=== PATIENT | female | born 1950 | race African-American/Black ===

== ENCOUNTER 2017-11-13 08:46 | Outpatient (CLI) | payer OTHER ==
--- NOTE | 2017-11-13 10:10 | RAD ---
PA AND LATERAL OF THE CHEST: INDICATIONS: Chest pain. COMPARISON: None. FINDINGS: There is slight elevation of the right hemidiaphragm. No focal consolidation is evident. Heart size is within normal limits. No pleural effusion is demonstrated. There are DISH like changes involvin g the mid thoracic spine. IMPRESSION: No acute cardiopulmonary abnormality. POS: [facility]
== END 2017-11-13 08:47 | disposition home or self-care (01) ==
LOC: SCSRAD 08:46
PROVIDERS: ATTEND Family Medicine
DX: R05 Cough (principal)
CPT/HCPCS: 71046

== ENCOUNTER 2018-11-09 06:51 | Outpatient (CLI) | payer MEDICARE, OTHER ==
[2018-11-09 10:40] LABS: #Basophils 0.1 thou/uL (0.0-0.2); #Eosinphils 0.1 thou/uL (0.0-0.7); #Lymphocytes 2.4 thou/uL (1.20-3.40); #Monocytes 0.5 thou/uL (0.11-0.59); #Neutrophils 4.3 thou/uL (1.40-6.50); %Basophils 1.5 % (0.0-1.0); %Eosinophils 1.1 % (0.0-10.0); %Lymphocytes 32.3 % (21.0-51.0); %Monocytes 6.9 % (0.0-10.0); %Neutrophils 58.3 % (42.0-75.0); Hemoglobin 12.6 g/dL (12.0-16.0); Mean Corpuscular HGB CONC 30.9 g/dL (32.0-36.0); Mean Corpuscular Hemoglobin 29.1 pg (27.0-31.0); Mean Corpuscular Volume 94.2 fL (78.0-98.0); Mean Platelet Volume 9.4 fL (7.4-10.4); Platelet Count 243 thou/uL (130-400); RBC Distribution Width 14.5 % (11.5-14.5); Red Blood Cell (RBC) Count 4.34 mill/uL (4.20-5.40); White Blood Cell (WBC) Count 7.3 thou/uL (4.8-10.8)
[2018-11-09 10:52] LABS: ALT (SGPT) 11 U/L (8-55); AST (SGOT) 13 U/L (5-34); Albumin 3.8 g/dL (3.4-4.8); Alkaline Phosphatase 50 U/L (40-150); Anion Gap 17 mmol/L (10-20); BUN (Urea Nitrogen) 15 mg/dL (9.8-20.1); Bilirubin, Total 0.8 mg/dL (0.2-1.2); Calc. Creatinine Clearance 0 mL/min (70-130); Calcium 10.1 mg/dL (7.8-10.44); Carbon Dioxide 29 mmol/L (23-31); Chloride 103 mmol/L (98-107); Estimated GFR-MDRD 70; Globulin 3.3 g/dL (2.4-3.5); Glucose 172 mg/dL (80-115); Potassium 4.3 mmol/L (3.5-5.1); Protein, Total 7.1 g/dL (6.0-8.3); Sodium 145 mmol/L (136-145)
== END 2018-11-09 06:52 | disposition home or self-care (01) ==
LOC: LABBT 06:51
PROVIDERS: ATTEND Internal Medicine Cardiovascular Disease
DX: Z01.812 Encounter for preprocedural laboratory examination (principal); I42.9 Cardiomyopathy, unspecified
CPT/HCPCS: 80053; 85025

== ENCOUNTER 2018-11-15 05:52 | Day surgery (SDC) | payer MEDICARE, OTHER ==
[2018-11-09 09:44] VITALS: BMI 40.6
[2018-11-15] MEDS ORDERED: Heparin 10,000 UNITS/1 ML VIAL ONE (07:14)
[2018-11-15] MEDS ORDERED: Verapamil 5 MG/2 ML VIAL ONE (07:14)
[2018-11-15] MEDS ORDERED: Nitroglycerin 100MG/250ML BOT 250 ML ONE (07:14)
[2018-11-15] MEDS ORDERED: Iopamidol 370 76% 100 ML VIAL ONE (09:20)
== END 2018-11-15 10:15 | disposition home or self-care (01) ==
LOC: CCL 05:52
PROVIDERS: ATTEND Internal Medicine Cardiovascular Disease
PROC: 4A023N7 Measurement of Cardiac Sampling and Pressure, Left Heart, Percutaneous Approach (ICD-10-PCS; principal; 2018-11-15)
PROC: B2111ZZ Fluoroscopy of Multiple Coronary Arteries using Low Osmolar Contrast (ICD-10-PCS; 2018-11-15)
DX: I42.9 Cardiomyopathy, unspecified (principal); I11.0 Hypertensive heart disease with heart failure; I50.9 Heart failure, unspecified; I44.7 Left bundle-branch block, unspecified; E11.9 Type 2 diabetes mellitus without complications; E78.5 Hyperlipidemia, unspecified; Z79.82 Long term (current) use of aspirin; Z79.84 Long term (current) use of oral hypoglycemic drugs; Z79.899 Other long term (current) drug therapy; Z88.2 Allergy status to sulfonamides; Z88.8 Allergy status to other drugs, medicaments and biological substances
CPT/HCPCS: 93458; C1769; J1644; Q9967

== ENCOUNTER 2020-07-09 06:24 | Outpatient (CLI) | payer MEDICARE, OTHER ==
--- NOTE | 2020-07-09 11:51 | RAD ---
XR Chest Pa Lat STANDARD HISTORY: Preoperative evaluation COMPARISON: 06/08/2019 FINDINGS: The heart size is normal. Left-sided AICD remains in place. The lungs are well expanded wit hout focal areas of consolidation, pneumothorax or pleural effusions. There are degenerative changes in the spine. IMPRESSION: No radiographic evidence of acute cardiopulmonary process.
[2020-07-09 16:14] LABS: #Basophils 0.1 thou/uL (0.0-0.2); #Eosinphils 0.1 thou/uL (0.0-0.7); #Lymphocytes 1.8 thou/uL (1.20-3.40); #Monocytes 0.5 thou/uL (0.11-0.59); #Neutrophils 3.9 thou/uL (1.40-6.50); %Eosinophils 1.6 % (0.0-10.0); %Lymphocytes 28.9 % (21.0-51.0); %Monocytes 7.6 % (0.0-10.0); Hemoglobin 12.9 g/dL (12.0-16.0); Mean Corpuscular HGB CONC 31.1 g/dL (32.0-36.0); Mean Corpuscular Hemoglobin 30.9 pg (27.0-31.0); Mean Corpuscular Volume 99.3 fL (78.0-98.0); Mean Platelet Volume 9.5 fL (7.4-10.4); Platelet Count 216 thou/uL (130-400); RBC Distribution Width 13.8 % (11.5-14.5); Red Blood Cell (RBC) Count 4.16 mill/uL (4.20-5.40); White Blood Cell (WBC) Count 6.4 thou/uL (4.8-10.8)
[2020-07-09 16:47] LABS: Anion Gap 18 mmol/L (10-20); BUN (Urea Nitrogen) 19 mg/dL (9.8-20.1); Calc. Creatinine Clearance 0 mL/min (70-130); Calcium 9.2 mg/dL (7.8-10.44); Carbon Dioxide 27 mmol/L (23-31); Chloride 103 mmol/L (98-107); Estimated GFR-MDRD 84; Glucose 109 mg/dL (80-115); Potassium 4.7 mmol/L (3.5-5.1); Sodium 143 mmol/L (136-145)
[2020-07-10 13:23] LABS: SARS-CoV-2 MS2 Positive; SARS-CoV-2 N Gene Negative; SARS-CoV-2 S Gene Negative; SARS-CoV-2 by NAA Not Detected (NotDetected); SARS-CoV-2 orf1ab Negative
== END 2020-07-09 06:25 | disposition home or self-care (01) ==
LOC: LABBT 06:24 → SCSRAD 06:25
PROVIDERS: ATTEND Specialist
DX: Z01.818 Encounter for other preprocedural examination (principal); Z20.828 Contact with and (suspected) exposure to other viral communicable diseases; C50.912 Malignant neoplasm of unspecified site of left female breast; R59.0 Localized enlarged lymph nodes
CPT/HCPCS: 71046; 80048; 85025; 87635; U0003

== ENCOUNTER 2020-07-12 06:44 | Observation (INO) | payer MEDICARE ==
[2020-07-12] MEDS ORDERED: Acetaminophen 500 MG TAB ONE (08:26)
--- NOTE | 2020-07-12 08:41 | NM ---
Exam: Nuclear medicine lymphoscintigraphy HISTORY: Left breast cancer COMPARISON: None TECHNIQUE: Patient was administered a total of 0.416 focus of technetium 99m filtered sulfur colloid subcutaneous the 12:00, 3:00, 6:00 and 9:00 position. FINDINGS: There appears to be a sentinel lymph node in the left adnexa IMPRESSION: Left axillary sentinel lymph node.
[2020-07-12] MEDS ORDERED: Ketorolac Tromethamine 30 MG/ML VIAL ONE ×2 (09:04→09:50)
[2020-07-12] MEDS ORDERED: PROPOFOL 200 MG/20 ML VIAL ONE (09:50)
[2020-07-12] MEDS ORDERED: Metoclopramide HCl 10 MG/2 ML VIAL ONE (09:50)
[2020-07-12] MEDS ORDERED: Dexamethasone 20 MG/5 ML VIAL ONE (09:50)
[2020-07-12] MEDS ORDERED: Ondansetron PF 4 MG/2 ML Vial ONE (09:50)
[2020-07-12] MEDS ORDERED: Lidocaine 1% PF 5 ML VIAL ONE (09:50)
[2020-07-12] MEDS ORDERED: Succinylcholine Chloride 20 MG/ML 10 ml SYRINGE FS ONE ×3 (09:50→17:52)
[2020-07-12] MEDS ORDERED: Fentanyl 100 MCG/2 ML VIAL ONE ×3 (11:33→18:28)
[2020-07-12] MEDS ORDERED: Lidocaine 1% w/Epinephrine 1:100K 20 ML VIAL ONE (14:19)
[2020-07-12] MEDS ORDERED: Bupivacaine 0.25% HCL 30 ML VIAL ONE (14:19)
[2020-07-12] MEDS ORDERED: Methylene Blue 50 MG/10 ML AMPUL ONE (14:48)
[2020-07-12] MEDS ORDERED: hydrALAZINE 20 MG/ML VIAL SLOW IVP PRN (19:32)
[2020-07-12] MEDS ORDERED: Insulin Regular 300 UNITS/3 ML VIAL SC PRN (19:32)
[2020-07-12] MEDS ORDERED: Dextrose 5% in Water 1,000 ML IV PRN (19:32)
[2020-07-12] MEDS ORDERED: Ondansetron PF 4 MG/2 ML Vial IVP PRN (19:32)
[2020-07-12] MEDS ORDERED: Promethazine HCl 25 MG/ML VIAL IM PRN (19:32)
[2020-07-12] MEDS ORDERED: Dextrose 50% Abboject 50 ML SYRINGE SLOW IVP PRN (19:32)
[2020-07-12] MEDS: Carvedilol 25 MG TAB PO SCH (21:00)
[2020-07-12] MEDS: Famotidine 20 MG TAB PO SCH (21:00)
[2020-07-12] MEDS: Lactated Ringer's 1,000 ML IV SCH (21:49)
[2020-07-12 22:59] VITALS: BMI 42.5
[2020-07-13] MEDS: HYDROcodone/Acetaminophen 7.5/325 mg Tablet PO PRN ×2 (03:50→12:17)
[2020-07-13 05:06] LABS: #Lymphocytes 1.2 thou/uL (1.20-3.40); #Monocytes 0.5 thou/uL (0.11-0.59); %Basophils 0.1 % (0.0-1.0); %Lymphocytes 8.8 % (21.0-51.0); %Monocytes 3.6 % (0.0-10.0); %Neutrophils 87.4 % (42.0-75.0); Hemoglobin 12.6 g/dL (12.0-16.0); Mean Corpuscular HGB CONC 31.9 g/dL (32.0-36.0); Mean Corpuscular Hemoglobin 31.3 pg (27.0-31.0); Mean Corpuscular Volume 98.3 fL (78.0-98.0); Mean Platelet Volume 9.5 fL (7.4-10.4); Platelet Count 213 thou/uL (130-400); RBC Distribution Width 13.6 % (11.5-14.5); Red Blood Cell (RBC) Count 4.04 mill/uL (4.20-5.40); White Blood Cell (WBC) Count 13.8 thou/uL (4.8-10.8)
[2020-07-13 05:30] LABS: Anion Gap 13 mmol/L (10-20); BUN (Urea Nitrogen) 20 mg/dL (9.8-20.1); Calc. Creatinine Clearance 106 mL/min (70-130); Calcium 8.9 mg/dL (7.8-10.44); Carbon Dioxide 32 mmol/L (23-31); Chloride 101 mmol/L (98-107); Estimated GFR-MDRD 69; Glucose 184 mg/dL (80-115); Potassium 4.7 mmol/L (3.5-5.1); Sodium 141 mmol/L (136-145)
[2020-07-13] MEDS ORDERED: metFORMIN 500 MG TAB PO SCH (08:00)
[2020-07-13] MEDS ORDERED: Aspirin Chewable 81 MG TAB PO SCH (09:00)
[2020-07-13] MEDS ORDERED: Furosemide 20 MG TAB PO SCH (09:00)
[2020-07-13] MEDS: Carvedilol 25 MG TAB PO SCH (09:11)
[2020-07-13] MEDS: Famotidine 20 MG TAB PO SCH (09:11)
[2020-07-13] MEDS: Lactated Ringer's 1,000 ML IV SCH (09:32)
[2020-07-13 12:57] VITALS: BP 132/68; TEMP 97.3
--- NOTE | 2020-07-16 13:43 | OP ---
DATE OF PROCEDURE: 07/12/2020 PREOPERATIVE DIAGNOSIS: Left breast cancer. POSTOPERATIVE DIAGNOSIS: Left breast cancer with axillary lymph node metastasis. PROCEDURES PERFORMED: 1. Left breast ultrasound-guided needle localization. 2. Needle localized left lumpectomy. 3. Left axillary sentinel lymph node biopsy, conversion to a left axillary line, axillary lymph node dissection. ANESTHESIA: General endotracheal. INDICATIONS: The patient is a 69-year-old black female. She presented with what appeared to be 2 separate foci of cancer in the left breast just above the nipple-areolar complex. One of these was at the 11 o'clock Radian and other about the 1 o'clock radian. I was decided to resect these in continuity. DESCRIPTION OF OPERATION: Informed consent was obtained. The patient was taken to the operating room where general endotracheal anesthesia obtained with the patient in supine position. The left breast was infiltrated with 3 mL of Lymphazurin in the periareolar subdermal tissue and massaged for 5 minutes. Attention was turned first to the left axilla. Local anesthetic was infiltrated. Transverse axillary incision was created. Dissection was carried through skin and subcutaneous tissue. Neoprobe was utilized to guide the dissection. I identified 3 separate axillary lymph nodes, each of which were radioactive. There was minimal blue staining of the lymph nodes. These lymph nodes had a worrisome appearance. I was not surprised and I was told by Pathology the each of the three lymph nodes had metastatic tumor within them. While awaiting the results of the Touch Prep, I turned my attention to the breast. Ultrasound was utilized to identify the areas of the cancer within the breast and these were marked on the skin in a grid fashion. I passed 2 separate localizing wires into the two lesions, the lateral lesion I passed the wire in a lateral to medial fashion. In the medial lesion, I passed the wire in a medial to lateral fashion. Due to the proximity of the lateral lesion to the skin, I made an elliptical incision over this segment of the of the resection. Dissection was carried through skin and subcutaneous tissue. Ultrasound was utilized during the course of the procedure to try to continue to identify the malignancy. I obtained a wide core of tissue around both wires, removing the specimen in continuity. It was tagged for orientation and submitted for pathology. Meticulous hemostasis was obtained. The wound was closed in layers with 3-0 and 4-0 Monocryl. Dermabond was placed externally. Attention was then turned to the left axilla. The incision was extended somewhat both anteriorly and posterior. Dissection was carried out so as to raised flaps superiorly and inferiorly. The inferior flap was then carried down to the chest wall. The lateral aspect of the pectoralis was identified. Dissection was carried superiorly to identify this axillary vein. I then carefully identified both the long thoracic and thoracodorsal nerves and preserved these throughout. All fatty and lymphatic tissue were swept out of the axilla in a superior to inferior fashion. All lymphatics were clipped as they were encountered. The specimen was passed off the field. Meticulous hemostasis was obtained. A #19 round fluted drain was placed within the wound and brought out inferiorly and secured with 3-0 nylon suture. The wound was closed in layers with 3-0 and 4-0 Monocryl and Dermabond was placed externally. There were no complications. The patient tolerated the procedure well and was taken to recovery in stable condition. Job ID: [id number]
== END 2020-07-13 13:05 | disposition home or self-care (01) ==
LOC: SDC 06:44 → SURG A 19:29
PROVIDERS: ADMIT Specialist; ATTEND Specialist
PROC: 0HBU0ZZ Excision of Left Breast, Open Approach (ICD-10-PCS; principal; 2020-07-12)
PROC: 07B63ZX Excision of Left Axillary Lymphatic, Percutaneous Approach, Diagnostic (ICD-10-PCS; 2020-07-12)
DX: C50.412 Malignant neoplasm of upper-outer quadrant of left female breast (principal); C77.3 Secondary and unspecified malignant neoplasm of axilla and upper limb lymph nodes; E11.9 Type 2 diabetes mellitus without complications; I10 Essential (primary) hypertension; M19.90 Unspecified osteoarthritis, unspecified site; J30.2 Other seasonal allergic rhinitis; Z17.0 Estrogen receptor positive status [ER+]; Z79.84 Long term (current) use of oral hypoglycemic drugs; Z79.899 Other long term (current) drug therapy; Z88.2 Allergy status to sulfonamides; Z88.8 Allergy status to other drugs, medicaments and biological substances
CPT/HCPCS: 19301; 38525; 76098; 78195; 80048; 82962 ×2; 85025; 94660; 97139; A9541; Q9968; 36415; 36416; 88307; 88333; 88334; 96360; 96361; G0378; J0690; J1100; J1815; J1885; J2405; J2704; J2765; J3010; S0020

== ENCOUNTER 2020-07-23 08:04 | Outpatient (CLI) | payer MEDICARE, OTHER ==
[2020-07-23 16:27] LABS: #Basophils 0.1 thou/uL (0.0-0.2); #Eosinphils 0.2 thou/uL (0.0-0.7); #Lymphocytes 2.5 thou/uL (1.20-3.40); #Monocytes 0.6 thou/uL (0.11-0.59); %Eosinophils 2.6 % (0.0-10.0); %Lymphocytes 26.8 % (21.0-51.0); %Monocytes 6.3 % (0.0-10.0); %Neutrophils 63.4 % (42.0-75.0); Hemoglobin 12.8 g/dL (12.0-16.0); Mean Corpuscular HGB CONC 31.9 g/dL (32.0-36.0); Mean Corpuscular Hemoglobin 31.2 pg (27.0-31.0); Mean Corpuscular Volume 97.9 fL (78.0-98.0); Mean Platelet Volume 9.4 fL (7.4-10.4); Platelet Count 260 thou/uL (130-400); RBC Distribution Width 13.9 % (11.5-14.5); Red Blood Cell (RBC) Count 4.11 mill/uL (4.20-5.40); White Blood Cell (WBC) Count 9.5 thou/uL (4.8-10.8)
[2020-07-23 16:55] LABS: Anion Gap 14 mmol/L (10-20); BUN (Urea Nitrogen) 18 mg/dL (9.8-20.1); Calc. Creatinine Clearance 0 mL/min (70-130); Calcium 9.4 mg/dL (7.8-10.44); Carbon Dioxide 32 mmol/L (23-31); Chloride 100 mmol/L (98-107); Estimated GFR-MDRD 69; Glucose 195 mg/dL (80-115); Potassium 4.4 mmol/L (3.5-5.1); Sodium 142 mmol/L (136-145)
[2020-07-24 16:21] LABS: SARS-CoV-2 MS2 Positive; SARS-CoV-2 N Gene Negative; SARS-CoV-2 S Gene Negative; SARS-CoV-2 by NAA Not Detected (NotDetected); SARS-CoV-2 orf1ab Negative
== END 2020-07-23 08:05 | disposition home or self-care (01) ==
LOC: LABBT 08:04
PROVIDERS: ATTEND Specialist
DX: Z01.812 Encounter for preprocedural laboratory examination (principal); C50.912 Malignant neoplasm of unspecified site of left female breast; Z20.828 Contact with and (suspected) exposure to other viral communicable diseases
CPT/HCPCS: 80048; 85025; U0003; 87635

== ENCOUNTER 2020-07-26 05:35 | Observation (INO) | payer MEDICARE ==
[2020-07-24 09:44] VITALS: BMI 42.0
[2020-07-26] MEDS ORDERED: Ketorolac Tromethamine 30 MG/ML VIAL ONE ×2 (06:31→10:11)
[2020-07-26] MEDS ORDERED: Acetaminophen 500 MG TAB ONE (06:31)
[2020-07-26] MEDS ORDERED: Bupivacaine/Epinephrine 0.25% 30 ML VIAL ONE (06:36)
[2020-07-26] MEDS ORDERED: Lidocaine 2% PF 5 ML VIAL ONE (06:36)
[2020-07-26] MEDS ORDERED: Lidocaine 1% (PF) 30 ML VIAL ONE (06:41)
[2020-07-26] MEDS ORDERED: HYDROmorphone 0.5 MG/0.5 ML SYRINGE ONE (07:17)
[2020-07-26] MEDS ORDERED: Fentanyl 100 MCG/2 ML VIAL ONE (07:17)
[2020-07-26] MEDS ORDERED: HYDROmorphone 2 MG/ML VIAL SLOW IVP PRN (08:51)
[2020-07-26] MEDS ORDERED: Promethazine HCl 25 MG/ML VIAL SLOW IVP PRN (08:51)
[2020-07-26] MEDS ORDERED: Ondansetron HCl/PF 4 MG/2 ML Vial IVP PRN (08:51)
[2020-07-26] MEDS ORDERED: SUGAMMADEX SODIUM 500 MG/5 ML VIAL ONE (08:59)
[2020-07-26] MEDS ORDERED: EPHEDRINE 25 MG/5 ML SYRINGE ONE (10:11)
[2020-07-26] MEDS ORDERED: PROPOFOL 200 MG/20 ML VIAL ONE (10:11)
[2020-07-26] MEDS ORDERED: Lidocaine 1% PF 5 ML VIAL ONE (10:11)
[2020-07-26] MEDS ORDERED: Dexamethasone 20 MG/5 ML VIAL ONE (10:11)
[2020-07-26] MEDS ORDERED: PHENYLEPHRINE-NS 100 MCG/ML 10 ML SYRINGE ONE (10:11)
[2020-07-26] MEDS ORDERED: Glycopyrrolate 0.2 MG/ML 5 ML SYRINGE ONE (10:11)
[2020-07-26] MEDS ORDERED: Rocuronium Bromide 10 MG/ML (10ML VIAL) ONE (10:11)
[2020-07-26] MEDS ORDERED: Ondansetron PF 4 MG/2 ML Vial ONE (10:11)
--- NOTE | 2020-07-26 10:27 | RAD ---
CHEST 1 VIEW: HISTORY: Status post MediPort placement. FINDINGS: Left ICD. Right central line and injection port. Small right apical pneumothorax with some minimal subcutaneous emphysema in the right neck. The left chest is unremarkable. Heart size is normal. IMPRESSION: Small right apical pneumothorax with minimal air in the right neck soft tissues. Findings were discussed with nurse Bradley in the recovery room at 10:17 a.m. who indicated that he w ould contact Dr. Lyles in this regard who is in surgery at the present time. POS: [facility]
[2020-07-26] MEDS ORDERED: HYDROcodone/Acetaminophen 5/325 mg Tablet ONE (12:25)
[2020-07-26] MEDS ORDERED: Ondansetron PF 4 MG/2 ML Vial IVP PRN (13:17)
[2020-07-26] MEDS ORDERED: Promethazine HCl 25 MG/ML VIAL IM PRN (13:17)
[2020-07-26] MEDS ORDERED: Morphine 2 MG/ML VIAL SLOW IVP PRN (13:17)
[2020-07-26] MEDS ORDERED: hydrALAZINE 20 MG/ML VIAL SLOW IVP PRN (13:17)
[2020-07-26] MEDS ORDERED: Dextrose 5% in Water 1,000 ML IV PRN (13:17)
[2020-07-26] MEDS ORDERED: Dextrose 50% Abboject 50 ML SYRINGE SLOW IVP PRN (13:17)
--- NOTE | 2020-07-26 13:54 | OP ---
DATE OF PROCEDURE: 07/26/2020 PREOPERATIVE DIAGNOSIS: Left breast cancer with positive margins following recent lumpectomy. PROCEDURE PERFORMED: Placement of right subclavian standard-sized power compatible MediPort, re-excision of left breast lumpectomy with conversion to a central lumpectomy. TOOL LIAISON: Keiko Diaz, medical student. ANESTHESIA: General endotracheal. INDICATIONS: The patient is a 69-year-old obese black female. She has recently undergone left breast cancer surgery. Her lumpectomy margins were positive with an attempted nipple preservation. She also had an axillary node dissection as she had multiple positive axillary lymph nodes. She is returned to the operating room at this time for re-excision of her lumpectomy. I believe the size of her breasts allows for a more robust excision without producing an unsatisfactory result. We will also place a right subclavian MediPort for chemotherapy administration. DESCRIPTION OF OPERATION: Informed consent was obtained. Patient was taken to the operating room, where general endotracheal anesthesia obtained with patient in supine position. Attention was turned first to her right chest. Her bilateral chest and breasts were prepped with ChloraPrep and draped in sterile fashion. Local anesthetic was infiltrated and a large gauge needle was passed under the clavicle into the subclavian vein. Guidewire was passed through the needle and fluoroscopically confirmed to enter the superior vena cava. Additional local anesthetic was infiltrated. Transverse incision was created based on needle insertion site and subcutaneous pocket was dissected. Introducer dilator was passed over the guidewire under fluoroscopic guidance. Catheter was passed through the introducer, which was removed in the usual peel-apart fashion. The catheter tip was positioned at the atriocaval junction and the catheter was trimmed to appropriate length. It was secured to the locking hub of the MediPort. The port was secured to pectoral fascia with 2 interrupted sutures of 3-0 Prolene. The wound was closed in layers with 3-0 and 4-0 Monocryl and Dermabond was placed externally. Attention was turned to the left breast. An elliptical incision was fashioned to include the entire superior part of the nipple-areolar complex. I carried the incision through the inferior areola to avoid further skin excision. Dissection was carried through the skin and subcutaneous tissue. Good margin of tissue was maintained around the prior lumpectomy site. Attention was paid to the previous positive margins in order to try to get negative margins. The specimen was removed intact and tagged for orientation and passed off the field. The wound was inspected and there was found to be potentially concerning tissue laterally. This may have just been glandular tissue, but I decided to excise the lateral margin. This was removed and tagged for orientation. Meticulous hemostasis was obtained. The wound was closed in layers using 3-0 Vicryl to approximate the deep central area to hopefully produce some projection. Remainder of the wound closed in layers with 3-0 and 4-0 Monocryl. Dermabond was placed over the incision site. There were no complications. Blood loss was negligible. The patient tolerated the procedure well. Postop chest x-ray recognized that there was a tiny right apical pneumothorax after the MediPort was placed. This was not anticipated based on intraoperative findings or occurrences. She, however, will be admitted for observation to ensure this is stable. Job ID: [id number]
[2020-07-26] MEDS: Insulin Regular 300 UNITS/3 ML VIAL SC PRN ×2 (16:31→21:35)
[2020-07-26] MEDS: Lactated Ringer's 1,000 ML IV SCH (16:32)
[2020-07-26] MEDS: Famotidine 20 MG TAB PO SCH (20:34)
[2020-07-26] MEDS: HYDROcodone/Acetaminophen 7.5/325 mg Tablet PO PRN (20:34)
[2020-07-27 05:36] LABS: #Lymphocytes 1.5 thou/uL (1.20-3.40); #Monocytes 1.3 thou/uL (0.11-0.59); #Neutrophils 13.5 thou/uL (1.40-6.50); %Basophils 0.2 % (0.0-1.0); %Eosinophils 0.2 % (0.0-10.0); %Lymphocytes 9.2 % (21.0-51.0); %Monocytes 7.7 % (0.0-10.0); %Neutrophils 82.6 % (42.0-75.0); Hemoglobin 12.1 g/dL (12.0-16.0); Mean Corpuscular HGB CONC 32.1 g/dL (32.0-36.0); Mean Corpuscular Hemoglobin 31.3 pg (27.0-31.0); Mean Corpuscular Volume 97.7 fL (78.0-98.0); Mean Platelet Volume 8.9 fL (7.4-10.4); Platelet Count 225 thou/uL (130-400); RBC Distribution Width 13.5 % (11.5-14.5); Red Blood Cell (RBC) Count 3.86 mill/uL (4.20-5.40); White Blood Cell (WBC) Count 16.4 thou/uL (4.8-10.8)
[2020-07-27] MEDS: Insulin Regular 300 UNITS/3 ML VIAL SC PRN (06:29)
--- NOTE | 2020-07-27 08:57 | PDOC.GSPN ---
Surgery Progress Note: Subj - Subjective Narrative: Ms. Ssuan Arreola is a 69 year old female POD 1 re-excision of left lumpectomy for negative margins and mediport placement. She was kept in the hospital overnight for observation of a small right pneumothorax that was noted in the post-op CXR for the mediport placement. Overnight her vitals stayed stable with her O2 saturation never dropping below 92%. She remains on 2L of oxygen via nasal canula and had a repeat CXR this morning. Her BP spiked this morning to 175/71, but the nurse reported that Ms. Arreola was in significant pain (8/10) when that BP was measured. She had just finished ambulating when I visited her this morning and the walking program will come walk with her again in a few hours. She was feeling okay overall and has 4/10 pain around her lumpectomy incision site but is manageable with pain medications. She has been eating well without any nausea or vomiting and has been able to urinate. She has not yet had a bowel movement or passed flatus. She denies shortness of breath, difficulty breathing, chest pain, constipation, dizziness, and headaches. Surgery Progress Note: Obj - Vital signs Vital signs: Vital Signs - Most Recent Temp Pulse Resp BP Pulse Ox 97.6 F 69 18 122/71 95 07/27/20 03:47 07/27/20 03:47 07/27/20 03:47 07/27/20 03:47 07/27/20 03:47 Her BP was elevated at 9:30 AM this morning to 175/71, but she was in significant pain when this BP was measured. - Physical Exam General: well developed, well nourished, moderate pain, obese Neck: no masses, no mitali distention Cardiovascular: regular rate and rhythm Respiratory: clear to auscultation, normal respiratory effort, breath sounds present Abdomen: soft, non tender, nondistended, positive bowel sounds Musculoskeletal: normal gait Wound: healing well (Mediport incision is healing well and has no erythema/edema/ drainage), drainage (minimal bloody drainage from her incision site for the re-excision of left lumpectomy margins) Additional exam: no peripheral edema noticed Surgery Progress Note: Results - Labs Result Diagrams: 07/27/20 05:15 Lab results: Laboratory Results - last 12 hr 07/26/20 07/27/20 07/27/20 20:48 05:15 05:53 WBC 16.4 H RBC 3.86 L Hgb 12.1 Hct 37.7 MCV 97.7 MCH 31.3 H MCHC 32.1 RDW 13.5 Plt Count 225 MPV 8.9 Neutrophils % 82.6 H Lymphocytes % 9.2 L Monocytes % 7.7 Eosinophils % 0.2 Basophils % 0.2 Neutrophils # 13.5 H Lymphocytes # 1.5 Monocytes # 1.3 H Eosinophils # 0.0 Basophils # 0.0 POC Glucose 223 H 174 H Surgery Progress Note: A/P - Plan Plan: Ms. Arreola continues to have a small right pneumothorax present on her CXR; still awaiting the final radiology report. * Continue monitoring her O2 saturations * Continue 2 L oxygen nasal canula * Continue diabetic diet * Continue walking program * Continue diabetes management * Possibly place a pneumothorax catheter to alleviate the pneumothorax and keep her for observation overnight * Repeat CT in the morning * Hope to discharge patient in the next 24-48 hours
[2020-07-27] MEDS: HYDROcodone/Acetaminophen 7.5/325 mg Tablet PO PRN ×3 (09:57→21:28)
[2020-07-27] MEDS: Famotidine 20 MG TAB PO SCH ×2 (10:32→20:44)
--- NOTE | 2020-07-27 11:08 | RAD ---
PA AND LATERAL CHEST: HISTORY: Followup of pneumothorax. COMPARISON: A 07/26/2020 exam. FINDINGS: Heart size appears borderline with a pacemaker present. There is a right-sided MediPort catheter pre sent. The catheter tip overlies the superior vena cava. The right apical pneumothorax has not impro dane as compared to the previous study. IMPRESSION: Persistent right apical pneumothorax. POS: [facility]
[2020-07-27] MEDS ORDERED: FLU VACC QS2020-21(65YR UP)/PF 240 MCG/0.7 ML SYRINGE IM ONE (15:15)
--- NOTE | 2020-07-27 15:31 | RAD ---
PORTABLE CHEST ONE VIEW: 07/27/20 at 3:24 p.m. HISTORY: Pneumothorax. COMPARISON: Previous day. FINDINGS/IMPRESSION: The previously noted right apical pneumothorax is not definitely seen on the current exam. Remainder of the exam is otherwise stable. POS: [facility]
[2020-07-27] MEDS ORDERED: metFORMIN 500 MG TAB PO SCH (18:45)
[2020-07-27] MEDS: Acetaminophen 325 MG TAB PO PRN (18:52)
[2020-07-27] MEDS: Lactated Ringer's 1,000 ML IV SCH (20:02)
[2020-07-27] MEDS: Carvedilol 25 MG TAB PO SCH (20:44)
[2020-07-27] MEDS ORDERED: Atorvastatin Calcium 10 MG TAB PO SCH (21:00)
[2020-07-27] MEDS ORDERED: Montelukast Sodium 10 mg Tablet PO SCH (21:00)
--- NOTE | 2020-07-27 22:38 | OP ---
DATE OF PROCEDURE: 07/27/2020 PREOPERATIVE DIAGNOSIS: Right pneumothorax. POSTOPERATIVE DIAGNOSIS: Right pneumothorax. PROCEDURE PERFORMED: Placement of right pneumothorax catheter. ANESTHESIA: 1% lidocaine. INDICATIONS FOR PROCEDURE: As above. DESCRIPTION OF PROCEDURE: The patient was placed in the left lateral decubitus position in her bed on the surgical floor. Right lateral chest was prepped with ChloraPrep and locally anesthetized with 1% lidocaine. A small stab incision was created. The pneumothorax catheter was advanced over the underlying rib (it was quite deep, extending through a thick layer of subcutaneous fatty tissue). Once I did enter the pleural space, the pneumothorax catheter was advanced over the needle uneventfully. The catheter was placed to suction initially and then placed to the Heimlich valve connection. Postprocedure chest x-ray shows good inspiration with resolution of pneumothorax. Job ID: [id number]
--- NOTE | 2020-07-27 22:42 | PRG ---
DATE OF SERVICE: 07/27/2020 SUBJECTIVE: Ms. Arreola is postoperative day #1 from re-excision of left breast lumpectomy with conversion to a central lumpectomy. I also placed a right subclavian MediPort as she will certainly require chemotherapy. She has extensive left axillary gadiel disease. Following her surgery, her postop chest x-ray showed a tiny apical pneumothorax. I decided to admit her for observation to ensure the stability of this. She was entirely asymptomatic. This morning, her chest x-ray shows significant enlargement of the pneumothorax. For this reason, I decided to place a pneumothorax catheter. She denied any shortness of breath or chest discomfort. She had some mild appropriate discomfort at her two operative sites. OBJECTIVE: VITAL SIGNS: She is afebrile. Pulse in the 70s and 90s and regular. Blood pressure within normal limits. GENERAL: She is alert, in no distress. LUNGS: Clear to auscultation anteriorly bilaterally. Right chest MediPort site is healing appropriately with minimal tenderness. BREASTS: Left breast operative site was likewise healing appropriately. Dressing was intact over this. ASSESSMENT: The patient with right pneumothorax following MediPort placement. PLAN: Placement of pneumothorax catheter with a Heimlich valve. I would plan to discharge her after placement of this. Unfortunately, after the pneumothorax catheter was placed, when she was preparing for discharge, it was recognized that her oxygen saturation on room air was low at only 88%. Her effort on inspiratory spirometry was quite weak with volumes of only about 500 mL. I, therefore, decided to keep her as an inpatient until she can improve her oxygenation. Job ID: [id number]
[2020-07-28] MEDS: HYDROcodone/Acetaminophen 7.5/325 mg Tablet PO PRN (05:58)
[2020-07-28] MEDS: Insulin Regular 300 UNITS/3 ML VIAL SC PRN (06:00)
--- NOTE | 2020-07-28 07:34 | RAD ---
Chest one view HISTORY: Pneumothorax. Follow-up. COMPARISON: 07/27/2020. FINDINGS: Cardiac silhouette is magnified by projection. Shallow inspiration accentuates pulmonary ma rkings that are upper limits of normal. Mediastinum is midline with cardiac electronic device and Port-A-Cath remaining in place. Crescentic tiny lucency at the right apex likely represents minimal residual right apical pneumothora x, definitely smaller than the study from 07/27/2020 at 0834 hours. Left lung is well-inflated. IMPRESSION : Tiny right apical residual pneumothorax. Borderline pulmonary vascular congestion.
[2020-07-28] MEDS: metFORMIN 500 MG TAB PO SCH ×2 (08:59→17:09)
[2020-07-28] MEDS: Famotidine 20 MG TAB PO SCH (08:59)
[2020-07-28] MEDS ORDERED: Furosemide 20 MG TAB PO SCH (09:00)
[2020-07-28] MEDS ORDERED: Aspirin 325 MG TAB PO SCH (09:00)
[2020-07-28] MEDS ORDERED: Aspirin 81 mg Enteric Coated Tablet PO SCH (09:00)
[2020-07-28] MEDS ORDERED: traMADol HCl 50 MG TAB PO PRN (09:21)
--- NOTE | 2020-07-28 09:33 | PRG ---
DATE OF SERVICE: 07/28/2020 Ms. Arreola has no complaints. The right side chest pain is better. She is sitting up in the chair. Her O2 saturations drifted down into the low 90s off oxygen. She has not had her Lasix yet today. Her chest is clear bilaterally. Heart, regular rate. Wounds are all healing well intact. Chest x-ray this morning showed only a tiny residual apical pneumothorax. ASSESSMENT: If her O2 saturations improved throughout the day, she can be discharged home. Job ID: [id number]
[2020-07-28] MEDS: Acetaminophen 325 MG TAB PO PRN (13:50)
[2020-07-28 16:10] VITALS: TEMP 97.5
[2020-07-28 16:43] VITALS: BP 109/58
[2020-07-28] MEDS: Lactated Ringer's 1,000 ML IV SCH (17:10)
[2020-07-28] MEDS: Carvedilol 25 MG TAB PO SCH (17:11)
== END 2020-07-28 17:40 | disposition home or self-care (01) ==
LOC: SDC 05:35 → SURG B 14:00
PROVIDERS: ADMIT Specialist; ATTEND Specialist
PROC: 02HV33Z Insertion of Infusion Device into Superior Vena Cava, Percutaneous Approach (ICD-10-PCS; principal; 2020-07-26)
PROC: 0HBU0ZZ Excision of Left Breast, Open Approach (ICD-10-PCS; 2020-07-26)
PROC: 0W9930Z Drainage of Right Pleural Cavity with Drainage Device, Percutaneous Approach (ICD-10-PCS; 2020-07-27)
DX: C50.912 Malignant neoplasm of unspecified site of left female breast (principal); J93.9 Pneumothorax, unspecified; E11.9 Type 2 diabetes mellitus without complications; I10 Essential (primary) hypertension; J30.2 Other seasonal allergic rhinitis; M19.90 Unspecified osteoarthritis, unspecified site; Z17.0 Estrogen receptor positive status [ER+]; Z79.82 Long term (current) use of aspirin; Z79.84 Long term (current) use of oral hypoglycemic drugs; Z79.899 Other long term (current) drug therapy; Z88.2 Allergy status to sulfonamides; Z88.8 Allergy status to other drugs, medicaments and biological substances
CPT/HCPCS: 19301; 32551; 36561; 71045 ×3; 71046; 82962 ×3; 85025; 88307; 90662; 97139 ×2; C1788; G0008; J2270; 32556; 36415; 36416; 90471; 96361; 96374; G0378; J0690; J1100; J1170; J1642; J1815; J1885; J2001; J2405; J2704; J3010

== ENCOUNTER 2020-08-10 07:19 | Outpatient (CLI) | payer MEDICARE ==
--- NOTE | 2020-08-10 09:38 | PET ---
EXAM: PET/CT HISTORY: Malignant neoplasm of the left breast; metastatic breast cancer TECHNIQUE: PET scanning with CT attenuation correction was performed from the base of the brain to the proximal thighs following the intravenous administration of 12.2 millicuries [id number]. COMPARISON: Left breast diagnostic ultrasound dated May 18, 2020. FINDINGS: Biodistribution:The biodistribution for the exam appears acceptable. Head and neck: There is appropriate background activity within the brain. No hypermetabolic lymphaden opathy or masses identified within the head neck region. Thorax: There is postsurgical change of an associated open wound involving the left axilla consistent with a recent left axillary lymph node dissection. There is associated hypermetabolic activity involving the skin and subcutaneous fat as well as portions of the anterior left breast tissue in the region of a left breast lumpectomy. There is a right subclavian chest wall port and left subclavian dual-lead pacemaker. No hypermetabolic mediastinal, hilar or residual axillary lymph nodes are present. No hypermetabolic pulmonary nodule or pleural effusion is demonstrated. Abdomen and pelvis: There is expected background activity within the GI and systems. No hypermetab olic mass, lymphadenopathy or ascites is present. Osseous structures and skin: There is a focus of hypermetabolic activity overlying the right greater trochanter without associated CT correlate. This is centered within the soft tissues overlying the right greater trochanter and is suspicious for focus of trochanteric bursitis. The peak activity asso ciated with this focal region of uptake is 4.76. Non hypermetabolic mildly prominent inguinal lymph nodes are seen bilaterally. IMPRESSION: 1. Hypermetabolic activity near a left breast surgical site and left axillary lymph node dissection s ite corresponding to inflammation resulting from the surgical procedures in these locations. No definite evidence to suggest regional metastatic disease in these locations. 2. No evidence to suggest distant hypermetabolic metastatic disease within the chest, abdomen or pelv is. 3. Focus of hypermetabolic activity within the soft tissues over the right greater trochanter of the femur is most suspicious for a focus of trochanteric bursitis. Recommend correlation with the clinical exam. No definite abnormal CT lesion is seen involving the lateral aspect of the right femur in this location.
== END 2020-08-10 07:20 | disposition home or self-care (01) ==
LOC: PET 07:19
PROVIDERS: ATTEND Internal Medicine Hematology & Oncology
DX: C50.112 Malignant neoplasm of central portion of left female breast (principal)
CPT/HCPCS: 78815; A9552

== ENCOUNTER 2021-06-05 12:46 | Outpatient (CLI) | payer MEDICARE ==
[2021-06-05 14:54] LABS: Anion Gap 13 mmol/L (10-20); BUN (Urea Nitrogen) 16 mg/dL (9.8-20.1); Calc. Creatinine Clearance 0 mL/min (70-130); Calcium 10.3 mg/dL (7.8-10.44); Carbon Dioxide 28 mmol/L (23-31); Chloride 104 mmol/L (98-107); Glucose 103 mg/dL (80-115); Potassium 4.2 mmol/L (3.5-5.1); Sodium 141 mmol/L (136-145)
[2021-06-05 15:05] LABS: Hemoglobin 11.9 g/dL (12.0-15.5); Mean Corpuscular HGB CONC 32.5 g/dL (32.0-36.0); Mean Corpuscular Hemoglobin 32.2 pg (27.0-33.0); Mean Corpuscular Volume 99.2 fl (81.6-98.3); Mean Platelet Volume 11.2 fl (7.4-10.4); Platelet Count 177 10x3/uL (150-450); RBC Distribution Width 15.2 % (11.5-14.5); Red Blood Cell (RBC) Count 3.69 10x6/uL (3.90-5.03); White Blood Cell (WBC) Count 3.2 10x3/uL (3.5-10.5)
[2021-06-05 20:38] LABS: Hemoglobin A1c 6.3 % (4.0-6.0)
[2021-06-05 22:50] LABS: SARS-CoV-2 PCR by NAA DETECTED (NotDetected)
== END 2021-06-05 12:47 | disposition home or self-care (01) ==
LOC: LABBT 12:46
PROVIDERS: ATTEND Surgery
DX: U07.1 COVID-19 (principal); Z01.812 Encounter for preprocedural laboratory examination; K57.32 Diverticulitis of large intestine without perforation or abscess without bleeding; Z93.9 Artificial opening status, unspecified
CPT/HCPCS: 80048; 83036; 85027; U0003; U0005

== ENCOUNTER 2021-07-15 06:03 | Inpatient (IN) | payer MEDICARE ==
[2021-07-12 13:49] VITALS: BMI 35.6
[2021-07-15] MEDS ORDERED: cefOXitin Sodium/Dextrose 2 GM/50 ML BAG ONE (06:24)
[2021-07-15] MEDS ORDERED: Promethazine HCl 25 MG/ML VIAL IM PRN ×3 (07:10→17:12)
[2021-07-15] MEDS ORDERED: Insulin Regular 300 UNITS/3 ML VIAL SC PRN (07:10)
[2021-07-15] MEDS ORDERED: Morphine 2 MG/ML VIAL SLOW IVP PRN (07:10)
[2021-07-15] MEDS ORDERED: Ondansetron PF 4 MG/2 ML Vial IVP PRN (07:10)
[2021-07-15] MEDS ORDERED: hydrALAZINE 20 MG/ML VIAL SLOW IVP PRN (07:10)
[2021-07-15 07:23] LABS: Anion Gap 12 mmol/L (10-20); BUN (Urea Nitrogen) 14 mg/dL (9.8-20.1); Calc. Creatinine Clearance 109 mL/min (70-130); Carbon Dioxide 29 mmol/L (23-31); Chloride 102 mmol/L (98-107); Glucose 87 mg/dL (80-115); Potassium 4.6 mmol/L (3.5-5.1); Sodium 138 mmol/L (136-145)
[2021-07-15 07:35] LABS: Hemoglobin 12.5 g/dL (12.0-16.0); Mean Corpuscular HGB CONC 32.8 g/dL (32.0-36.0); Mean Corpuscular Hemoglobin 33.6 pg (27.0-31.0); Mean Platelet Volume 8.5 fL (7.4-10.4); Platelet Count 173 thou/uL (130-400); RBC Distribution Width 13.6 % (11.5-14.5); Red Blood Cell (RBC) Count 3.73 mill/uL (4.20-5.40)
[2021-07-15 07:38] LABS: Band 1 % (5-11); Eosinophils 4 % (0-10); Lymphocytes 30 % (21-51); MDiff Complete? YES; Monocytes 10 % (0-10); Neutrophil 54 % (42-75); RBC Morphology Normal; Reactive Lymphocytes 1 % (0-10)
[2021-07-15] MEDS ORDERED: Famotidine/PF 20 mg/2ml Vial ONE (08:56)
[2021-07-15] MEDS ORDERED: Fentanyl 100 MCG/2 ML VIAL ONE ×3 (08:56→17:33)
[2021-07-15] MEDS ORDERED: SUGAMMADEX SODIUM 200 MG/2 ML VIAL ONE ×2 (08:56→11:55)
[2021-07-15] MEDS ORDERED: Bupivacaine 0.25% HCL 30 ML VIAL ONE (09:02)
[2021-07-15] MEDS ORDERED: Indocyanine Green 25 MG/10 ML VIAL ONE (09:02)
[2021-07-15] MEDS ORDERED: Lidocaine 1% w/Epinephrine 1:100K 20 ML VIAL ONE (09:02)
[2021-07-15] MEDS ORDERED: Ondansetron PF 4 MG/2 ML Vial ONE (09:15)
[2021-07-15] MEDS ORDERED: PROPOFOL 200 MG/20 ML VIAL ONE (09:15)
[2021-07-15] MEDS ORDERED: PHENYLEPHRINE-NS 100 MCG/ML 10 ML SYRINGE ONE (09:15)
[2021-07-15] MEDS ORDERED: Rocuronium Bromide 10 MG/ML (10ML VIAL) ONE (09:15)
[2021-07-15] MEDS ORDERED: Lidocaine 1% PF 5 ML VIAL ONE (09:15)
[2021-07-15] MEDS ORDERED: Vecuronium 10 MG VIAL ONE (09:15)
[2021-07-15] MEDS ORDERED: ePHEDrine 50 MG/ML VIAL ONE (09:15)
[2021-07-15] MEDS ORDERED: ceFOXitin 1 GM VIAL ONE ×4 (11:32→15:11)
[2021-07-15] MEDS ORDERED: HYDROmorphone 2 MG/ML VIAL SLOW IVP PRN (17:12)
[2021-07-15] MEDS ORDERED: Ondansetron HCl/PF 4 MG/2 ML Vial IVP PRN ×2 (17:12)
[2021-07-15] MEDS ORDERED: Promethazine HCl 25 MG/ML VIAL IVPB PRN ×2 (17:12)
[2021-07-15] MEDS ORDERED: D5 1/2 NS w/20 mEq KCL 1,000 ML ONE (17:38)
[2021-07-15] MEDS: D5 1/2 NS w/20 mEq KCL 1,000 ML IV SCH ×2 (19:34→19:41)
[2021-07-15] MEDS: Sacubitril 49 MG/Valsartan 51 MG TABLET PO SCH ×2 (19:42→21:37)
[2021-07-15] MEDS: Enoxaparin Sodium 40 MG/0.4 ML SYRINGE SC SCH (19:43)
[2021-07-15] MEDS: Carvedilol 25 MG TAB PO SCH ×2 (19:43→21:29)
[2021-07-15] MEDS: Polyethylene Glycol 3350 17 GM Packet PO SCH (19:44)
[2021-07-15] MEDS: Ketorolac Tromethamine 30 MG/ML VIAL IVP SCH ×2 (19:44→19:51)
[2021-07-15] MEDS: Famotidine/PF 20 mg/2ml Vial SLOW IVP SCH ×2 (19:44→21:30)
[2021-07-15] MEDS: cefOXitin 2 GM in Sodium Chloride 0.9% 100 ML IVPB SCH (19:46)
[2021-07-15] MEDS: DULoxetine 60 MG CAP PO SCH (21:29)
[2021-07-16] MEDS: cefOXitin 2 GM in Sodium Chloride 0.9% 100 ML IVPB SCH (00:06)
[2021-07-16] MEDS: Ketorolac Tromethamine 30 MG/ML VIAL IVP SCH ×4 (00:57→17:45)
[2021-07-16] MEDS: D5 1/2 NS w/20 mEq KCL 1,000 ML IV SCH ×4 (03:48→17:46)
[2021-07-16] MEDS ORDERED: KCL IV SCH (07:00)
[2021-07-16] MEDS ORDERED: D5 IV SCH (07:00)
[2021-07-16] MEDS ORDERED: 1/2 NS W IV SCH (07:00)
[2021-07-16] MEDS: Sacubitril 49 MG/Valsartan 51 MG TABLET PO SCH ×2 (10:09→20:22)
[2021-07-16] MEDS: Enoxaparin Sodium 40 MG/0.4 ML SYRINGE SC SCH (10:09)
[2021-07-16] MEDS: Famotidine/PF 20 mg/2ml Vial SLOW IVP SCH ×2 (10:09→20:22)
[2021-07-16] MEDS: Carvedilol 25 MG TAB PO SCH ×2 (10:09→20:16)
[2021-07-16] MEDS: Polyethylene Glycol 3350 17 GM Packet PO SCH (10:10)
[2021-07-16 11:18] LABS: #Lymphocytes 0.8 thou/uL (1.20-3.40); #Monocytes 0.7 thou/uL (0.11-0.59); %Basophils 0.2 % (0.0-1.0); %Eosinophils 0.2 % (0.0-10.0); %Lymphocytes 7.3 % (21.0-51.0); %Monocytes 6.5 % (0.0-10.0); %Neutrophils 85.7 % (42.0-75.0); Hemoglobin 12.1 g/dL (12.0-16.0); Mean Corpuscular HGB CONC 32.8 g/dL (32.0-36.0); Mean Corpuscular Hemoglobin 33.6 pg (27.0-31.0); Mean Platelet Volume 8.4 fL (7.4-10.4); Platelet Count 146 thou/uL (130-400); RBC Distribution Width 13.8 % (11.5-14.5); White Blood Cell (WBC) Count 10.5 thou/uL (4.8-10.8)
[2021-07-16 11:50] LABS: Anion Gap 13 mmol/L (10-20); BUN (Urea Nitrogen) 19 mg/dL (9.8-20.1); Calc. Creatinine Clearance 69 mL/min (70-130); Calcium 8.7 mg/dL (7.8-10.44); Carbon Dioxide 26 mmol/L (23-31); Chloride 102 mmol/L (98-107); Glucose 237 mg/dL (80-115); Potassium 4.8 mmol/L (3.5-5.1); Sodium 136 mmol/L (136-145)
[2021-07-16] MEDS: HYDROcodone/Acetaminophen 7.5/325 mg Tablet PO PRN (20:21)
[2021-07-16] MEDS: DULoxetine 60 MG CAP PO SCH (20:22)
[2021-07-17] MEDS: D5 1/2 NS w/20 mEq KCL 1,000 ML IV SCH ×4 (00:38→23:00)
[2021-07-17] MEDS: Ketorolac Tromethamine 30 MG/ML VIAL IVP SCH ×2 (00:38→06:32)
[2021-07-17 08:48] LABS: #Eosinphils 0.1 thou/uL (0.0-0.7); #Lymphocytes 0.8 thou/uL (1.20-3.40); #Monocytes 0.7 thou/uL (0.11-0.59); #Neutrophils 8.1 thou/uL (1.40-6.50); %Basophils 0.4 % (0.0-1.0); %Eosinophils 1.4 % (0.0-10.0); %Lymphocytes 8.3 % (21.0-51.0); %Monocytes 7.4 % (0.0-10.0); %Neutrophils 82.5 % (42.0-75.0); Hemoglobin 10.9 g/dL (12.0-16.0); Mean Corpuscular HGB CONC 33.4 g/dL (32.0-36.0); Mean Corpuscular Hemoglobin 34.4 pg (27.0-31.0); Mean Platelet Volume 8.3 fL (7.4-10.4); Platelet Count 126 thou/uL (130-400); RBC Distribution Width 13.8 % (11.5-14.5); Red Blood Cell (RBC) Count 3.18 mill/uL (4.20-5.40); White Blood Cell (WBC) Count 9.8 thou/uL (4.8-10.8)
[2021-07-17 09:09] LABS: Anion Gap 10 mmol/L (10-20); BUN (Urea Nitrogen) 17 mg/dL (9.8-20.1); Calc. Creatinine Clearance 90 mL/min (70-130); Calcium 8.2 mg/dL (7.8-10.44); Carbon Dioxide 25 mmol/L (23-31); Chloride 105 mmol/L (98-107); Glucose 193 mg/dL (80-115); Potassium 4.7 mmol/L (3.5-5.1); Sodium 135 mmol/L (136-145)
[2021-07-17] MEDS: Carvedilol 25 MG TAB PO SCH ×2 (09:40→20:58)
[2021-07-17] MEDS: Sacubitril 49 MG/Valsartan 51 MG TABLET PO SCH ×2 (09:40→20:58)
[2021-07-17] MEDS: Famotidine/PF 20 mg/2ml Vial SLOW IVP SCH ×2 (09:41→20:58)
[2021-07-17] MEDS: Polyethylene Glycol 3350 17 GM Packet PO SCH (09:41)
[2021-07-17] MEDS: Enoxaparin Sodium 40 MG/0.4 ML SYRINGE SC SCH (09:42)
[2021-07-17] MEDS: HYDROcodone/Acetaminophen 7.5/325 mg Tablet PO PRN ×2 (11:02→20:58)
[2021-07-17] MEDS: DULoxetine 60 MG CAP PO SCH (20:58)
[2021-07-18] MEDS: HYDROcodone/Acetaminophen 7.5/325 mg Tablet PO PRN ×2 (05:52→15:07)
[2021-07-18] MEDS: Famotidine/PF 20 mg/2ml Vial SLOW IVP SCH ×2 (09:55→21:13)
[2021-07-18] MEDS: Carvedilol 25 MG TAB PO SCH ×2 (09:55→21:12)
[2021-07-18] MEDS: Sacubitril 49 MG/Valsartan 51 MG TABLET PO SCH ×2 (09:55→21:12)
[2021-07-18] MEDS: D5 1/2 NS w/20 mEq KCL 1,000 ML IV SCH ×3 (10:02→20:28)
[2021-07-18] MEDS: Polyethylene Glycol 3350 17 GM Packet PO SCH (10:03)
[2021-07-18] MEDS: Enoxaparin Sodium 40 MG/0.4 ML SYRINGE SC SCH (10:06)
[2021-07-18] MEDS: metFORMIN 500 MG TAB PO SCH (17:19)
[2021-07-18] MEDS: glipiZIDE 5 MG TAB PO SCH (17:20)
[2021-07-18] MEDS ORDERED: Montelukast Sodium 10 mg Tablet PO SCH (21:00)
[2021-07-18] MEDS ORDERED: Simvastatin 10 MG TAB PO SCH (21:00)
[2021-07-18] MEDS: DULoxetine 60 MG CAP PO SCH (21:12)
[2021-07-19] MEDS: HYDROcodone/Acetaminophen 7.5/325 mg Tablet PO PRN (07:56)
[2021-07-19] MEDS: metFORMIN 500 MG TAB PO SCH (07:58)
[2021-07-19] MEDS: glipiZIDE 5 MG TAB PO SCH (07:58)
[2021-07-19] MEDS: Carvedilol 25 MG TAB PO SCH (07:59)
[2021-07-19] MEDS: Famotidine/PF 20 mg/2ml Vial SLOW IVP SCH (08:00)
[2021-07-19] MEDS ORDERED: Potassium Chloride 20 MEQ TAB PO SCH (08:00)
[2021-07-19] MEDS: Enoxaparin Sodium 40 MG/0.4 ML SYRINGE SC SCH (08:01)
[2021-07-19] MEDS: Polyethylene Glycol 3350 17 GM Packet PO SCH (08:03)
[2021-07-19 08:06] VITALS: BP 122/59; TEMP 97.3
[2021-07-19] MEDS: D5 1/2 NS w/20 mEq KCL 1,000 ML IV SCH (08:10)
[2021-07-19] MEDS: Sacubitril 49 MG/Valsartan 51 MG TABLET PO SCH (08:11)
[2021-07-19] MEDS ORDERED: Furosemide 20 MG TAB PO SCH (09:00)
[2021-07-19] MEDS ORDERED: Aspirin 325 MG TAB PO SCH (09:00)
== END 2021-07-19 11:11 | disposition home or self-care (01) | DRG 346 ==
LOC: SURG A 06:03 → ONC 18:03
PROVIDERS: ADMIT Surgery; ATTEND Surgery
PROC: 0DSM4ZZ Reposition Descending Colon, Percutaneous Endoscopic Approach (ICD-10-PCS; principal; 2021-07-15)
PROC: 8E0W4CZ Robotic Assisted Procedure of Trunk Region, Percutaneous Endoscopic Approach (ICD-10-PCS; 2021-07-15)
PROC: 0DJD8ZZ Inspection of Lower Intestinal Tract, Via Natural or Artificial Opening Endoscopic (ICD-10-PCS; 2021-07-15)
DX: Z43.3 Encounter for attention to colostomy (principal); I11.0 Hypertensive heart disease with heart failure; I50.9 Heart failure, unspecified; E66.01 Morbid (severe) obesity due to excess calories; E11.51 Type 2 diabetes mellitus with diabetic peripheral angiopathy without gangrene; R34 Anuria and oliguria; Z68.35 Body mass index [BMI] 35.0-35.9, adult
CPT/HCPCS: 36415; 36416; 80048; 85007; 85025; 85027; 93005; 93010; J0694; J1650; J1885; J2405; J2704; J3010; J3480; J3490; S0020; S0028

== ENCOUNTER 2022-04-10 22:22 | Inpatient (IN) | payer MEDICARE ==
[2022-04-11 00:48] VITALS: BMI 38.9
[2022-04-11 04:50] LABS: Lactic Acid 2.1 mmol/L (0.5-2.2)
[2022-04-11 04:58] LABS: Anion Gap 15 mmol/L (10-20); BUN (Urea Nitrogen) 29 mg/dL (9.8-20.1); Calc. Creatinine Clearance 37 mL/min (70-130); Calcium 8.7 mg/dL (7.8-10.44); Carbon Dioxide 26 mmol/L (23-31); Chloride 106 mmol/L (98-107); Glucose 103 mg/dL (80-115); Potassium 4.5 mmol/L (3.5-5.1); Sodium 142 mmol/L (136-145)
[2022-04-11 05:06] LABS: #Lymphocytes 0.5 thou/uL (1.20-3.40); #Monocytes 0.1 thou/uL (0.11-0.59); #Neutrophils 4.1 thou/uL (1.40-6.50); %Basophils 0.2 % (0.0-1.0); %Eosinophils 0.7 % (0.0-10.0); %Lymphocytes 9.6 % (21.0-51.0); %Monocytes 2.3 % (0.0-10.0); %Neutrophils 87.2 % (42.0-75.0); Hemoglobin 8.2 g/dL (12.0-16.0); MDiff Complete? YES; Macrocytosis MODERATE=16-30 cells (100X) (0-5/hpf); Mean Corpuscular HGB CONC 33.1 g/dL (32.0-36.0); Mean Corpuscular Hemoglobin 41.9 pg (27.0-31.0); Mean Platelet Volume 8.8 fL (7.4-10.4); Ovalocytes SLIGHT = 2-5 cells (100X) (0-1/hpf); Platelet Count 88 thou/uL (130-400); Platelet Morphology Comment Appears Decreased; RBC Distribution Width 12.8 % (11.5-14.5); Red Blood Cell (RBC) Count 1.95 mill/uL (4.20-5.40); White Blood Cell (WBC) Count 4.7 thou/uL (4.8-10.8)
[2022-04-11] MEDS ORDERED: Senokot S 8.6-50 MG TAB PO PRN (08:01)
[2022-04-11] MEDS ORDERED: Bisacodyl 5 MG TAB PO PRN (08:01)
[2022-04-11] MEDS ORDERED: Ondansetron PF 4 MG/2 ML Vial IVP PRN (08:01)
[2022-04-11] MEDS ORDERED: Bisacodyl 10 MG SUPP PR PRN (08:01)
[2022-04-11] MEDS ORDERED: Ondansetron ODT 4 MG TAB PO PRN (08:01)
[2022-04-11] MEDS ORDERED: Lactated Ringer's 1,000 ML IV SCH (08:15)
[2022-04-11 08:46] LABS: Albumin 2.9 g/dL (3.4-4.8)
[2022-04-11 08:49] LABS: Protein, Total 6.7 g/dL (5.8-8.1)
[2022-04-11 08:50] LABS: Bilirubin, Total 1.8 mg/dL (0.2-1.2)
[2022-04-11 08:51] LABS: Alkaline Phosphatase 117 U/L (40-110)
[2022-04-11 08:53] LABS: AST (SGOT) 90 U/L (5-34); Bilirubin, Direct 0.8 mg/dL (0.1-0.3)
[2022-04-11 08:54] LABS: ALT (SGPT) 96 U/L (8-55); Lipase 5 U/L (8-78)
[2022-04-11] MEDS ORDERED: Cefepime 2 GM in Sodium Chloride 0.9% 100 ML IVPB SCH (09:00)
[2022-04-11] MEDS ORDERED: HumaLOG 300 UNITS/3 ML VIAL SC PRN ×2 (10:43)
[2022-04-11] MEDS ORDERED: Dextrose 5% in Water 1,000 ML IV PRN (10:43)
[2022-04-11] MEDS ORDERED: Dextrose 50% Abboject 50 ML SYRINGE SLOW IVP PRN (10:43)
[2022-04-11] MEDS: Lactated Ringer's 1,000 ML IV SCH (11:38)
[2022-04-11] MEDS: Famotidine 20 MG TAB PO SCH ×2 (11:39→23:18)
[2022-04-11] MEDS: Famotidine/PF 20 mg/2ml Vial SLOW IVP SCH ×2 (11:39→23:19)
[2022-04-11] MEDS: Vancomycin HCl 1.75 GM in Sodium Chloride 0.9% 250 ML 300 ML IVPB SCH ×2 (13:08→13:13)
[2022-04-11 13:13] LABS: Hemoglobin A1c 5.3 % (4.0-6.0)
[2022-04-11] MEDS ORDERED: VANCOMYCIN 1.75 GM/500 ML BAG 1.75 GM in Premix Bag 1 BAG IVPB SCH (13:15)
[2022-04-11] MEDS: metroNIDAZOLE 500 MG in Premix Bag 1 BAG IVPB SCH ×2 (16:04→23:19)
[2022-04-12] MEDS: Cefepime 1 GM in Sodium Chloride 0.9% 100 ML IVPB SCH ×3 (01:08→22:01)
[2022-04-12 04:31] LABS: Hemoglobin 8.9 g/dL (12.0-16.0); Mean Corpuscular HGB CONC 33.5 g/dL (32.0-36.0); Mean Corpuscular Hemoglobin 41.4 pg (27.0-31.0); Mean Platelet Volume 8.9 fL (7.4-10.4); Platelet Count 96 thou/uL (130-400); RBC Distribution Width 12.5 % (11.5-14.5); Red Blood Cell (RBC) Count 2.14 mill/uL (4.20-5.40); White Blood Cell (WBC) Count 4.4 thou/uL (4.8-10.8)
[2022-04-12 04:32] LABS: ALT (SGPT) 69 U/L (8-55); AST (SGOT) 44 U/L (5-34); Albumin 3.1 g/dL (3.4-4.8); Alkaline Phosphatase 118 U/L (40-110); Anion Gap 13 mmol/L (10-20); BUN (Urea Nitrogen) 24 mg/dL (9.8-20.1); Band 8 % (5-11); Bilirubin, Total 1.3 mg/dL (0.2-1.2); CRP (Inflammatory) 14.05 mg/dL (= or < 0.5); Calc. Creatinine Clearance 46 mL/min (70-130); Calcium 9.4 mg/dL (7.8-10.44); Carbon Dioxide 25 mmol/L (23-31); Cardiac Risk 2.8 (Less than 4.5); Chloride 107 mmol/L (98-107); Cholesterol 156 mg/dl (< 200 Desired); Globulin 4.3 g/dL (2.4-3.5); Glucose 107 mg/dL (80-115); HDL Cholesterol 56 mg/dL (>60 Neg Risk); Hypochromia SLIGHT = 6-15 cells (100X) (0-5/hpf); LDL Cholesterol, Calculated 69 mg/dL; Lymphocytes 17 % (21-51); MDiff Complete? YES; Macrocytosis SLIGHT = 6-15 cells (100X) (0-5/hpf); Monocytes 1 % (0-10); Neutrophil 74 % (42-75); Platelet Morphology Comment Appears Decreased; Potassium 3.7 mmol/L (3.5-5.1); Protein, Total 7.4 g/dL (5.8-8.1); Sodium 141 mmol/L (136-145); Triglycerides 156 mg/dL (Less than 150)
[2022-04-12 04:37] LABS: Critical Call Chemistry 2NO.AL; Magnesium 0.9 mg/dL (1.6-2.6)
[2022-04-12 04:46] LABS: HBCM Index 0.05 S/CO (0-0.79); HBSAg Index 0.26 S/CO (0-0.99); Hep A IgM AB Non-Reactive (NonReactive); Hep A IgM S/CO 0.18 S/CO (0-0.79); Hep B Surf Ag Non-Reactive S/CO (NonReactive); Hep C IgG Ab Non-Reactive (NonReactive); Hep C Index 0.11 S/CO (0-0.79); Hepatitis B Core IgM Abs Non-Reactive (NonReactive)
[2022-04-12] MEDS: Magnesium 2 GM/50 ML(in water) 2 GM in Premix Bag 1 BAG IVPB SCH ×4 (05:35→19:36)
[2022-04-12] MEDS: Lactated Ringer's 1,000 ML IV SCH (05:35)
[2022-04-12] MEDS: metroNIDAZOLE 500 MG in Premix Bag 1 BAG IVPB SCH ×3 (07:05→20:55)
[2022-04-12] MEDS ORDERED: VANCOMYCIN 1.75 GM/500 ML BAG 1.75 GM in Premix Bag 1 BAG IVPB SCH (09:00)
[2022-04-12] MEDS: Famotidine/PF 20 mg/2ml Vial SLOW IVP SCH (10:48)
[2022-04-12] MEDS: Famotidine 20 MG TAB PO SCH (10:49)
[2022-04-13 04:41] LABS: ALT (SGPT) 47 U/L (8-55); AST (SGOT) 29 U/L (5-34); Albumin 2.9 g/dL (3.4-4.8); Alkaline Phosphatase 108 U/L (40-110); Anion Gap 14 mmol/L (10-20); BUN (Urea Nitrogen) 16 mg/dL (9.8-20.1); Bilirubin, Total 0.9 mg/dL (0.2-1.2); Calc. Creatinine Clearance 64 mL/min (70-130); Calcium 9.3 mg/dL (7.8-10.44); Carbon Dioxide 22 mmol/L (23-31); Chloride 110 mmol/L (98-107); Globulin 4.4 g/dL (2.4-3.5); Glucose 132 mg/dL (80-115); Magnesium 1.7 mg/dL (1.6-2.6); Potassium 3.8 mmol/L (3.5-5.1); Protein, Total 7.3 g/dL (5.8-8.1); Sodium 142 mmol/L (136-145)
[2022-04-13 04:53] LABS: Band 1 % (5-11); Hemoglobin 8.9 g/dL (12.0-16.0); Hypochromia SLIGHT = 6-15 cells (100X) (0-5/hpf); Lymphocytes 14 % (21-51); MDiff Complete? YES; Macrocytosis MODERATE=16-30 cells (100X) (0-5/hpf); Mean Corpuscular HGB CONC 31.9 g/dL (32.0-36.0); Mean Corpuscular Hemoglobin 40.3 pg (27.0-31.0); Mean Platelet Volume 9.4 fL (7.4-10.4); Monocytes 5 % (0-10); Neutrophil 80 % (42-75); Ovalocytes MODERATE= 6-15 cells (100X) (0-1/hpf); Platelet Count 104 thou/uL (130-400); Platelet Morphology Comment Appears Decreased; Polychromasia SLIGHT = 2-3 cells (100X) (0-2/hpf); RBC Distribution Width 12.5 % (11.5-14.5)
[2022-04-13] MEDS: metroNIDAZOLE 500 MG in Premix Bag 1 BAG IVPB SCH ×3 (05:01→21:23)
[2022-04-13] MEDS: Lactated Ringer's 1,000 ML IV SCH ×2 (08:32→21:23)
[2022-04-13] MEDS ORDERED: Famotidine/PF 20 mg/2ml Vial SLOW IVP SCH (09:00)
[2022-04-13] MEDS: Famotidine 20 MG TAB PO SCH (09:47)
[2022-04-13] MEDS: Cefepime 1 GM in Sodium Chloride 0.9% 100 ML IVPB SCH ×2 (11:32→22:58)
[2022-04-13] MEDS: Acetaminophen 325 MG TAB PO PRN (11:42)
[2022-04-14] MEDS: metroNIDAZOLE 500 MG in Premix Bag 1 BAG IVPB SCH (05:08)
[2022-04-14 05:12] LABS: ALT (SGPT) 36 U/L (8-55); AST (SGOT) 20 U/L (5-34); Albumin 2.9 g/dL (3.4-4.8); Alkaline Phosphatase 116 U/L (40-110); Anion Gap 11 mmol/L (10-20); BUN (Urea Nitrogen) 10 mg/dL (9.8-20.1); Bilirubin, Total 0.8 mg/dL (0.2-1.2); Calc. Creatinine Clearance 85 mL/min (70-130); Calcium 9.4 mg/dL (7.8-10.44); Carbon Dioxide 27 mmol/L (23-31); Chloride 109 mmol/L (98-107); Globulin 4.1 g/dL (2.4-3.5); Glucose 137 mg/dL (80-115); Magnesium 1.5 mg/dL (1.6-2.6); Potassium 3.3 mmol/L (3.5-5.1); Sodium 144 mmol/L (136-145)
[2022-04-14 05:20] LABS: Band 8 % (5-11); Eosinophils 4 % (0-10); Hemoglobin 7.9 g/dL (12.0-16.0); Lymphocytes 22 % (21-51); MDiff Complete? YES; Macrocytosis SLIGHT = 6-15 cells (100X) (0-5/hpf); Mean Corpuscular HGB CONC 32.3 g/dL (32.0-36.0); Mean Platelet Volume 8.8 fL (7.4-10.4); Monocytes 8 % (0-10); Neutrophil 58 % (42-75); Platelet Count 108 thou/uL (130-400); Platelet Morphology Comment Appears Decreased; RBC Distribution Width 12.2 % (11.5-14.5); Red Blood Cell (RBC) Count 1.96 mill/uL (4.20-5.40)
[2022-04-14] MEDS ORDERED: Aspirin 325 MG TAB PO SCH (09:00)
[2022-04-14] MEDS ORDERED: Famotidine 20 MG TAB PO SCH (09:00)
[2022-04-14] MEDS ORDERED: Carvedilol 25 MG TAB PO SCH (09:00)
[2022-04-14] MEDS ORDERED: Folic Acid 1 MG TAB PO SCH (09:00)
[2022-04-14] MEDS ORDERED: glipiZIDE 5 MG TAB PO SCH (09:00)
[2022-04-14] MEDS ORDERED: Polyethylene Glycol 3350 17 GM Packet PO SCH (09:00)
[2022-04-14] MEDS ORDERED: Furosemide 20 MG TAB PO SCH (09:00)
[2022-04-14] MEDS: Acetaminophen 325 MG TAB PO PRN (09:14)
[2022-04-14] MEDS: Famotidine 20 MG TAB PO SCH (09:15)
[2022-04-14] MEDS ORDERED: Potassium Chloride 20 MEQ TAB PO SCH (10:00)
[2022-04-14] MEDS: Cefepime 1 GM in Sodium Chloride 0.9% 100 ML IVPB SCH (10:14)
[2022-04-14] MEDS ORDERED: Sacubitril 49 MG/Valsartan 51 MG TABLET PO SCH ×2 (10:15→21:00)
[2022-04-14 10:47] LABS: Iron 62 ug/dL (50-170); Iron Binding Capacity, Total 194 mcg/dL (265-497)
[2022-04-14 11:06] LABS: Ferritin 1255.78 ng/mL (10-291)
[2022-04-14 12:44] VITALS: BP 150/81; TEMP 97.8
[2022-04-14] MEDS ORDERED: DULoxetine 60 MG CAP PO SCH (21:00)
[2022-04-14] MEDS ORDERED: Simvastatin 10 MG TAB PO SCH (21:00)
[2022-04-14] MEDS ORDERED: Cefepime 2 GM in Sodium Chloride 0.9% 100 ML IVPB SCH (23:00)
[2022-04-15] MEDS ORDERED: Potassium Chloride 20 MEQ TAB PO SCH (09:00)
== END 2022-04-14 14:00 | disposition home or self-care (01) | DRG 871 ==
LOC: 2NO 23:49
PROVIDERS: ADMIT Student in an Organized Health Care Education/Training Program; ATTEND Internal Medicine
DX: A41.51 Sepsis due to Escherichia coli [E. coli] (principal); R65.21 Severe sepsis with septic shock; G93.41 Metabolic encephalopathy; N17.9 Acute kidney failure, unspecified; N18.4 Chronic kidney disease, stage 4 (severe); I50.22 Chronic systolic (congestive) heart failure; N13.30 Unspecified hydronephrosis; I48.91 Unspecified atrial fibrillation; E78.5 Hyperlipidemia, unspecified; K21.9 Gastro-esophageal reflux disease without esophagitis; D63.1 Anemia in chronic kidney disease; D69.6 Thrombocytopenia, unspecified; R31.29 Other microscopic hematuria; E66.9 Obesity, unspecified; E11.42 Type 2 diabetes mellitus with diabetic polyneuropathy; E83.42 Hypomagnesemia; R79.89 Other specified abnormal findings of blood chemistry; R10.9 Unspecified abdominal pain; I11.0 Hypertensive heart disease with heart failure; N32.89 Other specified disorders of bladder; Z88.2 Allergy status to sulfonamides; Z88.8 Allergy status to other drugs, medicaments and biological substances; Z79.84 Long term (current) use of oral hypoglycemic drugs; Z79.82 Long term (current) use of aspirin; Z79.899 Other long term (current) drug therapy; Z95.0 Presence of cardiac pacemaker; Z98.890 Other specified postprocedural states; Z85.3 Personal history of malignant neoplasm of breast; Z68.38 Body mass index [BMI] 38.0-38.9, adult
CPT/HCPCS: 36415; 36416; 51701; 71045; 74176; 76700; 76856; 80048; 80053; 80061; 80074; 81003; 81015; 82607; 82728; 82746; 83036; 83540; 83550; 83605; 83690; 83735; 83880; 84443; 85025; 86140; 87040; 87077; 87149; 87186; 93005; 96361; 96365; 96366; 96367; J0692; J3370; J3475; J3490; J7050; J7120; S0028

== ENCOUNTER 2022-05-26 09:17 | Outpatient (CLI) | payer MEDICARE | END 2022-05-26 09:18 | disposition home or self-care (01) | LOC: BICMAMMO 09:17 | PROVIDERS: ATTEND Nurse Practitioner Adult Health | DX: Z13.820 Encounter for screening for osteoporosis (principal); Z78.0 Asymptomatic menopausal state | CPT/HCPCS: 77080 ==

== ENCOUNTER 2022-12-15 11:22 | Outpatient (CLI) | payer MEDICARE | END 2022-12-15 11:23 | disposition home or self-care (01) | LOC: CT 11:22 | PROVIDERS: ATTEND Internal Medicine Hematology & Oncology | DX: C50.112 Malignant neoplasm of central portion of left female breast (principal); N64.89 Other specified disorders of breast | CPT/HCPCS: 71260; 74177; 82565 ==

== ENCOUNTER 2023-07-29 08:08 | Outpatient (CLI) | payer MEDICARE, OTHER ==
[2023-07-29] MEDS ORDERED: Iopamidol 370 76% 100 ML VIAL ONE (11:08)
== END 2023-07-29 08:09 | disposition home or self-care (01) ==
LOC: CT 08:08
PROVIDERS: ATTEND Internal Medicine Hematology & Oncology
DX: C50.112 Malignant neoplasm of central portion of left female breast (principal); C77.3 Secondary and unspecified malignant neoplasm of axilla and upper limb lymph nodes; D50.0 Iron deficiency anemia secondary to blood loss (chronic); R91.8 Other nonspecific abnormal finding of lung field; R60.0 Localized edema; R23.4 Changes in skin texture
CPT/HCPCS: 71260; 74177; 78306; 82565; A9503; 80048; Q9967

== ENCOUNTER 2024-01-14 07:26 | Outpatient (CLI) | payer MEDICARE, OTHER ==
[2024-01-14] MEDS ORDERED: Iopamidol 370 76% 100 ML VIAL ONE (12:16)
== END 2024-01-14 07:27 | disposition home or self-care (01) ==
LOC: CT 07:26
PROVIDERS: ATTEND Internal Medicine Hematology & Oncology
DX: C50.919 Malignant neoplasm of unspecified site of unspecified female breast (principal); C77.9 Secondary and unspecified malignant neoplasm of lymph node, unspecified
CPT/HCPCS: 71260; 74177; 78306; 82565; A9503; Q9967